=== PATIENT | male | born 1990 | race Two or more races ===

== ENCOUNTER 2022-04-21 11:48 | Emergency (ER) | payer MEDICAID, OTHER ==
[2022-04-21 12:29] VITALS: BP 112/62
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
== END 2022-04-21 14:02 | disposition home or self-care (01) ==
LOC: ED 11:48
DX: Z48.02 Encounter for removal of sutures (principal)
CPT/HCPCS: 15853; 99281; 99283